=== PATIENT | male | born 1975 | race Caucasian/White ===

== ENCOUNTER 2016-05-15 15:30 | Emergency (ER) | payer OTHER ==
[~2016-05-15] VITALS: Ht 175.3 cm; Wt 104.3 kg
[2016-05-15 15:35] VITALS: BP 135/96
[2016-05-15] MEDS ORDERED: CYCLOBENZAPRINE5 M2 PO (17:59)
[2016-05-15] MEDS ORDERED: NAPROSYN500 M1 PO (17:59)
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
== END 2016-05-15 18:27 ==
LOC: ERH 15:30
DX: S46.812A Strain of other muscles, fascia and tendons at shoulder and upper arm level, left arm, initial encounter (principal); V49.40XA Driver injured in collision with unspecified motor vehicles in traffic accident, initial encounter

== ENCOUNTER 2017-11-07 10:22 | Emergency (ER) | payer OTHER ==
[~2017-11-07] VITALS: Ht 175.3 cm; Wt 96.2 kg
[~2017-11-07 10:22] MED LIST: CYCLOBENZAPRINE5 M2 PO; NAPROSYN500 M1 PO
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
[2017-11-07 11:39] VITALS: BP 110/68
[2017-11-07] MEDS ORDERED: ALPRAZOLAM2 M2 PO (12:17)
[2017-11-07] MEDS ORDERED: KEFLEX500 M1 PO (12:31)
--- NOTE | 2017-11-07 12:37 | RADIOLOGY REPORT ---
EXAMINATION: XR TIBIA AND FIBULA, LEFT CLINICAL INFORMATION: Laceration from chainsaw. Evaluate for foreign body. COMPARISON: None TECHNIQUE: AP and lateral views of the left tibia and fibula were obtained. FINDINGS: Soft tissue laceration extends anterolateral to the mid third of the tibia and fibula. No radiopaque foreign body in this region. The tibia and fibula are intact. Bones have normal alignment at the knee and ankle. Two well positioned fixation screws extend through the medial malleolus. IMPRESSION: 1. Soft tissue laceration of the mid third of the leg. 2. No radiopaque foreign body. 3. No acute osseous injury in the tibia or fibula.
== END 2017-11-07 12:34 ==
LOC: ERH 10:22
DX: S81.812A Laceration without foreign body, left lower leg, initial encounter (principal); W29.3XXA Contact with powered garden and outdoor hand tools and machinery, initial encounter
CPT/HCPCS: 73590-LT; 90471; 90714; J2001